=== PATIENT | female | born 1955 | race Caucasian/White ===

== ENCOUNTER 2016-08-10 10:04 | Emergency (ER) | payer OTHER ==
[~2016-08-10] VITALS: Ht 157.5 cm; Wt 120.0 kg
[~2016-08-10 10:04] MED LIST: 1-ME1LIQ PO; ASPI325T PO; BACT800T5 PO; CEPH500C3 PO; HYDR-2768 PO; LISI-366 PO; METO25 PO; NAPR500 PO
[2016-08-10 10:08] VITALS: BP 219/109; PULSE 115; RESP 17; TEMP 98.2; O2SAT 98
[2016-08-10 10:11] VITALS: BP 246/109
[2016-08-10 10:32] VITALS: BP 243/112; PULSE 91
[2016-08-10] MEDS ORDERED: LISI40TA PO (10:34)
[2016-08-10] MEDS ORDERED: HYDR25TA5 PO (10:34)
[2016-08-10] MEDS ORDERED: ASPI325T PO (10:34)
[2016-08-10 10:45] LABS: AUTOMATED NEUTROPHIL # 6.7 TH/MM3 (1.8-7.7); BASOPHIL # 0.1 TH/MM3 (0-0.2); BASOPHIL % 0.7 % (0.0-2.0); EOSINOPHIL # 0.2 TH/MM3 (0-0.4); EOSINOPHIL % 1.6 % (0.0-4.0); HEMO FLAGS DIFF FINAL; LYMPH % 28.7 % (9.0-44.0); LYMPHOCYTE # 3.1 TH/MM3 (1.0-4.8); MEAN CELL VOLUME 80.4 FL (80.0-100.0); MEAN CORPUSCULAR HEMOGLOBIN 26.3 PG (27.0-34.0); MEAN CORPUSCULAR HGB CONC 32.7 % (32.0-36.0); MONO % 6.5 % (0.0-8.0); NEUT % 62.5 % (16.0-70.0); PLATELET COUNT 315 TH/MM3 (150-450); RED BLOOD COUNT 5.36 MIL/MM3 (4.00-5.30); WHITE BLOOD COUNT 10.8 TH/MM3 (4.0-11.0)
[2016-08-10] MEDS ORDERED: LABETALOL HCL 100 MG/20 ML VIAL IV PUSH ONE (10:45)
[2016-08-10 10:52] VITALS: BP 191/85; PULSE 75; RESP 16; O2SAT 100
--- NOTE | 2016-08-10 10:59 | PD ---
HPI Chief Complaint: Hypertension Time Seen by Provider: 10:37 Travel History International Travel<30 days: No Contact w/Intl Traveler<30days: No Traveled to known affect area: No History of Present Illness HPI 61-year-old female with history of HTN, HLD here with complaint of hypertension. Patient states that she has been compliant with her lisinopril 40 mg, HCTZ 25 mg. Despite this her blood pressure has been elevated for the last week. She has had multiple blood pressure checks at the [facility] and presents to the ED today with complaint of hypertension. She does not have any chest pain, shortness of breath. Patient does complain of slight dizziness but no headache. PFSH Past Medical History Cardiovascular Problems: Yes (HTN) High Cholesterol: Yes Diabetes: Yes Patient Takes Glucophage: No Diminished Hearing: No Hypertension: Yes Immunizations Current: No Influenza Vaccination: No ?: Not : 5 Para: 5 Tubal Ligation: Yes Past Surgical History Section: Yes (X 1) Gynecologic Surgery: Yes (HYSTERECTOMY, , TUBAL LIGATION ) Hysterectomy: Yes Tonsillectomy: Yes Social History Alcohol Use: Yes (OCC) Tobacco Use: No Substance Use: No Allergies-Medications (Allergen,Severity, Reaction): Coded Allergies: Bee Sting (Verified Allergy, Severe, 08/10/16) Percocet (Verified Allergy, Severe, 08/10/16) Reported Meds & Prescriptions Reported Meds & Active Scripts Active Reported Lisinopril 40 Mg Tab 40 Mg PO DAILY Hydrochlorothiazide 25 Mg Tab 25 Mg PO DAILY Aspirin 325 Mg Tab 325 Mg PO DAILY Review of Systems Except as stated in HPI: all other systems reviewed are Neg Physical Exam Narrative GENERAL: Obese female in no acute distress SKIN: Warm and dry. HEAD: Normocephalic. EYES: Pupils equal and round. No scleral icterus. No injection or drainage. ENT: No nasal bleeding or discharge. Mucous membranes pink and moist. NECK: Supple CARDIOVASCULAR: Regular rate and rhythm. No murmur appreciated. Hypertensive RESPIRATORY: No accessory muscle use. GASTROINTESTINAL: Abdomen soft, non-tender, nondistended. Obese MUSCULOSKELETAL: No edema. NEUROLOGICAL: Awake and alert. Normal speech. PSYCHIATRIC: Appropriate mood and affect; insight and judgment normal. Data Data Last Documented VS Vital Signs Date Time Temp Pulse Resp B/P Pulse Ox O2 Delivery O2 Flow Rate FiO2 08/10/16 11:06 67 16 142/69 95 Room Air 08/10/16 10:08 98.2 Orders Electrocardiogram (08/10/16 10:15) Complete Blood Count With Diff (08/10/16 10:15) Basic Metabolic Panel (Bmp) (08/10/16 10:15) Ckmb (Isoenzyme) Profile (08/10/16 10:15) Troponin I (08/10/16 10:15) Chest, Single Ap (08/10/16 10:15) Iv Access Insert/Monitor (08/10/16 10:15) Ecg Monitoring (08/10/16 10:15) Oxygen Administration (08/10/16 10:15) Oximetry (08/10/16 10:15) Labetalol Inj (Trandate Inj) (08/10/16 10:45) Labs Laboratory Tests Test 08/10/16 10:35 White Blood Count 10.8 TH/MM3 Red Blood Count 5.36 MIL/MM3 Hemoglobin 14.1 GM/DL Hematocrit 43.0 % Mean Corpuscular Volume 80.4 FL Mean Corpuscular Hemoglobin 26.3 PG Mean Corpuscular Hemoglobin 32.7 % Concent Red Cell Distribution Width 15.0 % Platelet Count 315 TH/MM3 Mean Platelet Volume 8.1 FL Neutrophils (%) (Auto) 62.5 % Lymphocytes (%) (Auto) 28.7 % Monocytes (%) (Auto) 6.5 % Eosinophils (%) (Auto) 1.6 % Basophils (%) (Auto) 0.7 % Neutrophils # (Auto) 6.7 TH/MM3 Lymphocytes # (Auto) 3.1 TH/MM3 Monocytes # (Auto) 0.7 TH/MM3 Eosinophils # (Auto) 0.2 TH/MM3 Basophils # (Auto) 0.1 TH/MM3 CBC Comment DIFF FINAL Differential Comment Sodium Level 137 MEQ/L Potassium Level 3.9 MEQ/L Chloride Level 102 MEQ/L Carbon Dioxide Level 28.5 MEQ/L Anion Gap 7 MEQ/L Blood Urea Nitrogen 18 MG/DL Creatinine 0.78 MG/DL Estimat Glomerular Filtration 75 ML/MIN Rate Random Glucose 143 MG/DL Calcium Level 9.1 MG/DL Total Creatine Kinase 71 U/L Troponin I LESS THAN 0.02 NG/ML MDM Medical Decision Making Medical Screen Exam Complete: Yes Emergency Medical Condition: Yes Medical Record Reviewed: Yes Differential Diagnosis 61-year-old female with history of HTN, HLD here with complaint of hypertension. Differential includes accelerated hypertension, hypertensive emergency, renal dysfunction, medication nonadherence. Narrative Course Patient placed on monitor, IV established and blood obtained. Twelve-lead EKG shows sinus rhythm with LVH but no notable ST abnormalities, normal intervals. Patient was given 20 mg labetalol IV. CBC, BMP, CK-MB, troponin obtained and unremarkable. Portable chest x-ray obtained that by my read shows no acute abnormalities. Patient's blood pressure responded very well to labetalol and is now in the 140s. She was given a dose of oral metoprolol will be discharged home with prescription for home. Diagnosis Primary Impression: Accelerated hypertension Referrals: Stella Manuel MD 1 week Primary Care Physician 1 week Additional Instructions: Add metoprolol as prescribed to your home lisinopril and hydrochlorothiazide. Follow-up with primary care provider in one week for blood pressure recheck. Med/Other Pt SpecificInfo: Prescription(s) given Scripts Metoprolol Tartrate 25 Mg Tab25 Mg PO BID #60 TAB Ref 0 Prov:Catherine Weller MD 08/10/16 Disposition: 01 DISCHARGE HOME Condition: Stable Catherine Weller MD Aug 10, 2016 10:58
[2016-08-10 11:06] VITALS: BP 142/69; PULSE 67; RESP 16; O2SAT 95
[2016-08-10 11:06] LABS: ANION GAP 7 MEQ/L (5-15); BICARBONATE 28.5 MEQ/L (21.0-32.0); BLOOD UREA NITROGEN 18 MG/DL (7-18); CHLORIDE 102 MEQ/L (98-107); GLOMERULAR FILTRATION RATE 75 ML/MIN (>89); POTASSIUM 3.9 MEQ/L (3.5-5.1); SODIUM (NA) 137 MEQ/L (136-145)
[2016-08-10 11:09] LABS: CREATINE KINASE 71 U/L (26-192)
[2016-08-10] MEDS ORDERED: METO25TA3 PO (11:19)
--- NOTE | 2016-08-10 11:26 | RADRPT ---
EXAM DATE/TIME: 08/10/2016 10:30 [facility] COMPARISON: FOOT LEFT COMPLETE ([id number]), August 02, 2015, 11:05. INDICATIONS : Chest pain. Dizziness, and high blood pressure. MEDICAL HISTORY : Hypertension. Hypercholesterolemia. SURGICAL HISTORY : None. ENCOUNTER: Initial ACUITY: 1 day PAIN SCORE: 10/10 LOCATION: Bilateral chest FINDINGS: The heart is enlarged. There are chronic interstitial changes throughout the pulmonary parenchyma. Th e bony structures are grossly intact. CONCLUSION: 1. Mild cardiomegaly and chronic interstitial changes. Lucien Fink MD on August 10, 2016 at 11:23 Board Certified Radiologist. This report was verified electronically.
[2016-08-10] MEDS ORDERED: METOPROLOL TARTRATE 25 MG TAB PO ONE (11:30)
--- NOTE | 2016-08-10 16:09 | EKG ---
Date Performed: 08/10/2016 Time Performed: 10:47:41 PTAGE: 61 years EKG: Sinus rhythm MINIMAL VOLTAGE CRITERIA FOR LVH, CONSIDER NORMAL VARIANT NONSPECIFIC T-WAVE ABNORMALITY BORDERLINE ECG PREVIOUS TRACING : 08/10/2016 10.21 Compared to prior tracing no significant change DOCTOR: Jamal Aranda Interpretating Date/Time 08/10/2016 16:08:08
[2016-09-27] MEDS ORDERED: ESCI10TA PO (15:11)
[2016-09-27] MEDS ORDERED: HYDR25TA5 PO (15:18)
[2016-09-27] MEDS ORDERED: LISI40TA PO (15:18)
[2016-09-27] MEDS ORDERED: METO25TA3 PO (15:18)
== END 2016-08-10 11:37 | disposition home or self-care (01) ==
LOC: NEPE 10:04
DX: I10 Essential (primary) hypertension (principal); E78.00 Pure hypercholesterolemia, unspecified; E11.9 Type 2 diabetes mellitus without complications; Z59.0 Homelessness; R94.31 Abnormal electrocardiogram [ECG] [EKG]
CPT/HCPCS: 71010; 80048; 82550; 84484; 85025; 93005; 96374